=== PATIENT | male | born 1955 | race Caucasian/White ===

== ENCOUNTER 2019-05-08 08:09 | Day surgery (SDC) | payer MEDICAID ==
[2019-05-08] MEDS ORDERED: Sodium Chloride 0.9% 1,000 ML IV SCH (08:52)
[2019-05-08] MEDS ORDERED: Propofol 200 MG/20 ML SDV ONE ×2 (09:39→09:53)
[2019-05-08] MEDS ORDERED: Midazolam 1 MG/ML 2 ML SDV ONE (09:39)
[2019-05-08] MEDS ORDERED: fentaNYL 100 MCG/2 ML SDV ONE (09:39)
[2019-05-08 10:49] VITALS: PULSE 53
[2019-05-08 11:00] VITALS: BP 131/85
--- NOTE | 2019-05-08 11:43 | OR ---
DATE OF PROCEDURE: 05/08/2019 SURGEON: Tyrell Pacheco MD PROCEDURE: Colonoscopy. FINDINGS: 1. Ascending colon polyp, approximately 5 mm, completely removed using hot snare wire. 2. Ascending colon polyp, approximately 5 mm, completely removed using cold biopsy forceps. COMPLICATIONS: None. RAILROAD REPAIRER: None. ANESTHESIA: MAC. RISKS: Risks, benefits, alternatives, and limitations including, but not limited to infection, bleeding, and perforation were explained to the patient, who wished to proceed. PROCEDURE IN DETAIL: The patient was placed in a left lateral decubitus position. Digital rectal exam was performed without abnormality. Scope was introduced and advanced atraumatically to the ileocecal valve. Scope was brought back through the ascending, transverse, descending colon, and retroflexed. The aforementioned polyps were both identified and completely removed. No abnormalities on retroflexion. The patient tolerated the procedure well. Tyrell Pacheco MD /[id number]
== END 2019-05-08 11:13 | disposition home or self-care (01) ==
LOC: JP.SDS 08:09
PROVIDERS: ATTEND Surgery
DX: Z12.11 Encounter for screening for malignant neoplasm of colon (principal); D12.2 Benign neoplasm of ascending colon; I10 Essential (primary) hypertension; I25.10 Atherosclerotic heart disease of native coronary artery without angina pectoris; E78.5 Hyperlipidemia, unspecified; G47.33 Obstructive sleep apnea (adult) (pediatric); Q60.0 Renal agenesis, unilateral; F17.200 Nicotine dependence, unspecified, uncomplicated; E66.9 Obesity, unspecified; Z68.32 Body mass index [BMI] 32.0-32.9, adult; Z86.010 Personal history of colon polyps; Z79.82 Long term (current) use of aspirin; Z79.899 Other long term (current) drug therapy
CPT/HCPCS: 88305; J2250; J2704; J3010; J7030

== ENCOUNTER 2020-10-06 16:12 | Emergency (ER) | payer MEDICAID ==
[2020-10-06] MEDS ORDERED: Sodium Chloride 0.9% 1,000 ML IV SCH (16:45)
[2020-10-06] MEDS ORDERED: Acetaminophen Soln 650 MG/20.3 ML UD Cup PO ONE (17:01)
[2020-10-06] MEDS ORDERED: Acetaminophen 325 MG Tab PO ONE (17:15)
[2020-10-06 17:35] VITALS: BP 101/74; PULSE 68
--- NOTE | 2020-10-06 18:28 | EDM.PDOC ---
ED HPI GENERAL MEDICAL PROBLEM - General Chief Complaint: Cardiovascular Problem Stated Complaint: LOW BP DIZZINESS Time Seen by Provider: 10/06/20 18:20 Source of Information: Reports: Patient History Limitations: Reports: No Limitations - History of Present Illness INITIAL COMMENTS - FREE TEXT/NARRATIVE: pt was seen at [facility] today and was found to have a low bp. He has not been vomiting. He has been having problems with his cpap. he feels like he has not been getting enouch o2. Onset: Today, Other ( bp was very low. ) Duration: Hour(s): Associated Symptoms: Reports: Weakness, Other (pt has had some dizziness. ) - Related Data Allergies Allergy/AdvReac Type Severity Reaction Status Date / Time No Known Allergies Allergy Verified 10/06/20 16:36 Home Meds: Home Meds Aspirin 325 mg PO DAILY 01/15/13 [History] Loratadine [Claritin] 10 mg PO DAILY 01/15/13 [History] Metoprolol Succinate [Toprol XL] 25 mg PO DAILY 01/15/13 [History] Sildenafil [Viagra] 100 mg PO ASDIRECTED PRN 01/15/13 [History] Tamsulosin [Tamsulosin 24 Hr] 0.4 mg PO DAILY 05/15/16 [History] atorvaSTATin [Lipitor] 20 mg PO BEDTIME 05/15/16 [History] Finasteride [Proscar] 5 mg PO DAILY 05/05/19 [History] lisinopriL [Lisinopril] 10 mg PO DAILY 05/05/19 [History] Past Medical History - Past Health History Medical/Surgical History: Denies Medical/Surgical History Cardiovascular History: Reports: Arrhythmia, Hypertension Respiratory History: Reports: Sleep Apnea Other Respiratory History: C-pap Gastrointestinal History: Reports: GERD, Other (See Below) Other Gastrointestinal History: colitis Musculoskeletal History: Reports: Back Pain, Chronic, Fracture Endocrine/Metabolic History: Reports: Obesity/BMI 30+ Dermatologic History: Reports: Other (See Below) Other Dermatologic History: rash on upper chest for 1 week - Infectious Disease History Infectious Disease History: Reports: Chicken Pox, Measles, Mumps - Past Surgical History HEENT Surgical History: Reports: Oral Surgery Other HEENT Surgeries/Procedures: widsdom teeth, broke nose GI Surgical History: Reports: Colonoscopy, Hernia, Abdominal, Hernia, Inguinal Male Surgical History: Reports: Nephrectomy Other Male Surgeries/Procedures: left nephrectomy Neurological Surgical History: Reports: Spinal Fusion Musculoskeletal Surgical History: Reports: Arthroscopic Knee Other Musculoskeletal Surgeries/Procedures:: right knee Social & Family History - Family History Family Medical History: No Pertinent Family History - Tobacco Use Years of Tobacco use: 24 Packs/Tins Daily: 0.5 - Caffeine Use Caffeine Use: Reports: None - Alcohol Use Days Per Week of Alcohol Use: 3 Number of Drinks Per Day: 3 Total Drinks Per Week: 9 - Recreational Drug Use Recreational Drug Use: No ED ROS GENERAL - Review of Systems Review Of Systems: See Below Constitutional: Reports: No Symptoms HEENT: Reports: No Symptoms Respiratory: Reports: No Symptoms Cardiovascular: Reports: Other (bp was very low at the clinic today. He has been drinking alot of fluids. He has not been vomiting. ) Endocrine: Reports: No Symptoms GI/Abdominal: Reports: No Symptoms, Other (pt has no abdomanal pain) : Reports: No Symptoms Musculoskeletal: Reports: No Symptoms Skin: Reports: No Symptoms ED EXAM, GENERAL - Physical Exam Exam: See Below Free Text/Narrative:: pt arrived with a history of feeling lite headed and he was found to have bp in the 70 range today. On arrival here his bp was 110. Exam Limited By: No Limitations General Appearance: Alert, Anxious Ears: Normal TMs Nose: Normal Inspection Throat/Mouth: Normal Inspection Head: Atraumatic Neck: Normal Inspection Respiratory/Chest: No Respiratory Distress, Other (pt states that his cpap is not working right. ) Cardiovascular: Regular Rate, Rhythm GI/Abdominal: Soft, Non-Tender (Male) Exam: Deferred Rectal (Males) Exam: Deferred Back Exam: Normal Inspection Extremities: Normal Inspection Neurological: Alert, Oriented, Normal Cognition Psychiatric: Anxious Course - Vital Signs Last Recorded V/S: Last Vital Signs Temp 36.8 C 10/06/20 16:33 Pulse 68 10/06/20 17:35 Resp 18 10/06/20 17:35 BP 101/74 10/06/20 17:35 Pulse Ox 98 10/06/20 17:35 - Orders/Labs/Meds Labs: Laboratory Tests 10/06/20 10/06/20 10/06/20 Range/Units 16:40 16:40 17:23 WBC 6.9 (4.5-11.0) K/uL RBC 4.19 L (4.30-5.90) M/uL Hgb 14.2 (12.0-15.0) g/dL Hct 42.2 (40.0-54.0) % MCV 101 H (80-98) fL MCH 34 H (27-31) pg MCHC 34 (32-36) % Plt Count 101 L (150-400) K/uL Neut % (Auto) 69.5 H (36-66) % Lymph % (Auto) 20.8 L (24-44) % [place] % (Auto) 8.7 H (2-6) % Eos % (Auto) 0.7 L (2-4) % Baso % (Auto) 0.3 (0-1) % Sodium 136 L (140-148) mmol/L Potassium 4.4 (3.6-5.2) mmol/L Chloride 99 L (100-108) mmol/L Carbon Dioxide 26 (21-32) mmol/L Anion Gap 15.4 H (5.0-14.0) mmol/L BUN 32 H (7-18) mg/dL Creatinine 1.8 H (0.8-1.3) mg/dL Est Cr Clr Drug Dosing 43.58 mL/min Estimated GFR (MDRD) 38 L (>60) Glucose 104 (74-106) mg/dL Calcium 8.8 (8.5-10.1) mg/dL Total Bilirubin 1.3 H (0.2-1.0) mg/dL AST 112 H (15-37) U/L ALT 113 H (12-78) U/L Alkaline Phosphatase 83 (46-116) U/L Total Protein 7.2 (6.4-8.2) g/dL Albumin 3.5 (3.4-5.0) g/dL Globulin 3.7 H (2.3-3.5) g/dL Albumin/Globulin Ratio 1.0 L (1.2-2.2) Lipase 379 (73-393) U/L Urine Color (YELLOW) Urine Appearance (CLEAR) Urine pH (5.0-8.0) Ur Specific [place] (1.008-1.030) Urine Protein (NEGATIVE) mg/dL Urine Glucose (UA) (NEGATIVE) mg/dL Urine Ketones (NEGATIVE) mg/dL Urine Occult Blood (NEGATIVE) Urine Nitrite (NEGATIVE) Urine Bilirubin (NEGATIVE) Urine Urobilinogen (0.2-1.0) EU/dL Ur Leukocyte Esterase (NEGATIVE) Urine RBC (0-5) Urine WBC (0-5) Ur Epithelial Cells Amorphous Sediment Urine Bacteria Urine Mucus Urine Other 10/06/20 Range/Units 17:57 WBC (4.5-11.0) K/uL RBC (4.30-5.90) M/uL Hgb (12.0-15.0) g/dL Hct (40.0-54.0) % MCV (80-98) fL MCH (27-31) pg MCHC (32-36) % Plt Count (150-400) K/uL Neut % (Auto) (36-66) % Lymph % (Auto) (24-44) % [place] % (Auto) (2-6) % Eos % (Auto) (2-4) % Baso % (Auto) (0-1) % Sodium (140-148) mmol/L Potassium (3.6-5.2) mmol/L Chloride (100-108) mmol/L Carbon Dioxide (21-32) mmol/L Anion Gap (5.0-14.0) mmol/L BUN (7-18) mg/dL Creatinine (0.8-1.3) mg/dL Est Cr Clr Drug Dosing mL/min Estimated GFR (MDRD) (>60) Glucose (74-106) mg/dL Calcium (8.5-10.1) mg/dL Total Bilirubin (0.2-1.0) mg/dL AST (15-37) U/L ALT (12-78) U/L Alkaline Phosphatase (46-116) U/L Total Protein (6.4-8.2) g/dL Albumin (3.4-5.0) g/dL Globulin (2.3-3.5) g/dL Albumin/Globulin Ratio (1.2-2.2) Lipase (73-393) U/L Urine Color Yellow (YELLOW) Urine Appearance Clear (CLEAR) Urine pH 5.0 (5.0-8.0) Ur Specific [place] 1.020 (1.008-1.030) Urine Protein Negative (NEGATIVE) mg/dL Urine Glucose (UA) Negative (NEGATIVE) mg/dL Urine Ketones Trace H (NEGATIVE) mg/dL Urine Occult Blood Trace-intact H (NEGATIVE) Urine Nitrite Negative (NEGATIVE) Urine Bilirubin Small H (NEGATIVE) Urine Urobilinogen 1.0 (0.2-1.0) EU/dL Ur Leukocyte Esterase Negative (NEGATIVE) Urine RBC 0-5 (0-5) Urine WBC 0-5 (0-5) Ur Epithelial Cells Moderate Amorphous Sediment Occasional Urine Bacteria Few Urine Mucus Occasional Urine Other See note Meds: Medications Discontinued Medications Generic Name Dose Route Start Last Admin Trade Name Zachery PRN Reason Stop Dose Admin Acetaminophen 650 mg 10/06/20 17:15 10/06/20 17:27 Acetaminophen 325 Mg Tab PO 10/06/20 17:16 650 mg ONETIME ONE Administration Sodium Chloride 1,000 mls @ 999 mls/hr 10/06/20 16:45 10/06/20 17:28 Normal Saline IV 999 mls/hr ASDIRECTED [facility] Administration - Re-Assessments/Exams Free Text/Narrative Re-Assessment/Exam: 10/06/20 18:33 bp has been stable since arrival. He was given a liter fluid. his bp has been stable. He will be checking on the cpap machine tomorrow. Departure - Departure Time of Disposition: 18:35 Disposition: Home, Self-Care 01 Condition: Fair Clinical Impression: Hypotension, Dehydration Instructions: Hypotension, [id number], Dehydration, Adult, [id number] Referrals: Loreto Hurtado MD [Primary Care Provider] - Forms: ED Department Discharge Care Plan Goals: try to get the cpap machine readjusted. --tomorrow, decrease the lisinopril to 7.5 mg daily, appt at [facility] sunday to recheck bp. look at cholestrol meds that may be elevated liver enzymes. Sepsis Event Note (ED) - Evaluation Sepsis Screening Result: No Definite Risk
== END 2020-10-06 18:54 | disposition home or self-care (01) ==
LOC: JP.ED 16:12
DX: E86.0 Dehydration (principal); I95.9 Hypotension, unspecified; I10 Essential (primary) hypertension; E66.9 Obesity, unspecified; Z68.32 Body mass index [BMI] 32.0-32.9, adult; Z72.0 Tobacco use; Z79.82 Long term (current) use of aspirin; Z79.899 Other long term (current) drug therapy
CPT/HCPCS: 36415; 80053; 81001; 83690; 85025; 99283; 99285; A9270; J7030

== ENCOUNTER 2021-05-02 05:49 | Day surgery (SDC) | payer MEDICARE, MEDICAID ==
[2021-05-02] MEDS ORDERED: Dextrose 5%-Lactated Ringers 1,000 ML IV SCH ×2 (06:00→06:39)
[2021-05-02] MEDS ORDERED: Midazolam 1 MG/ML 2 ML SDV ONE (07:17)
[2021-05-02] MEDS ORDERED: fentaNYL 100 MCG/2 ML SDV ONE (07:17)
[2021-05-02] MEDS ORDERED: Propofol 200 MG/20 ML SDV ONE (07:17)
[2021-05-02] MEDS ORDERED: Pantoprazole 40 MG Vial IVPUSH ONE (07:45)
[2021-05-02 08:30] VITALS: BP 134/88; PULSE 63
--- NOTE | 2021-05-04 09:51 | OR ---
DATE OF PROCEDURE: 05/02/2021 SURGEON: Momo Reyes MD PREOPERATIVE DIAGNOSIS: Recent nausea and vomiting (now resolved) with 20-year history of chewing tobacco use. POSTOPERATIVE DIAGNOSES: 1. Recent nausea and vomiting (now resolved) with 20-year history of chewing tobacco use. 2. 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 3. Diffuse gastritis. OPERATIVE PROCEDURES: Esophagogastroduodenoscopy with: 1. Biopsies of esophagogastric junction for histologic evaluation. 2. Biopsies of antrum for CLOtest. ANESTHESIA: IV sedation. INDICATION FOR PROCEDURE: This is a 65-year-old male, who recently had a period of nausea and vomiting. This has now resolved. He does have a history of 20 years of chewing tobacco and has a screening for problems such as esophageal cancer. The patient is undergoing upper GI endoscopy with biopsies as indicated. Potential risks including bleeding and perforation were discussed, and the patient wishes to proceed. DETAILS OF PROCEDURE: The patient taken to the operating room, placed in a left lateral decubitus position. IV sedation was administered, after which the upper GI endoscope was passed orally through the length of the esophagus and the stomach with retroflexion in the fundus and thereafter through the pyloric channel and into the junction of third and fourth portions of the duodenum. Findings included a fairly good visualization of the hypopharynx and larynx. No abnormalities were noted at that level. The upper esophageal sphincter, esophageal body were unremarkable. In the distal esophagus, there was roughly a 2 cm hiatal hernia. This was involving a fairly intense esophagitis with there being one linear ulcer and some upward extension of the columnar mucosa above the upper gastric folds. There is nothing involving length of esophagus. However, there was nothing that was suggestive that he has any neoplastic changes. Within the stomach, there is a more or less a diffuse gastritis. His pain was intense within the antrum, but the entire stomach was somewhat reddened and edematous at the mucosal level. No ulcers or erosions were seen. I did not think suggests neoplasia. The pyloric channel and visualized portion of the duodenum were unremarkable. At this point, biopsies obtained from the antrum, sent for CLOtest for H pylori. Multiple biopsies were then obtained from esophagogastric junction, sent for histologic evaluation. Minimal bleeding from the biopsy sites was seen and the procedure then concluded. The patient was taken to the recovery room in satisfactory condition. PLAN: Will be to give the patient some Protonix 40 mg IV in the recovery room and then continue Protonix 40 mg daily. He will be set up to see Dr. Hammer in [facility] in roughly 2 weeks. Momo Reyes MD /[id number]
== END 2021-05-02 08:35 | disposition home or self-care (01) ==
LOC: JP.SDS 05:49
PROVIDERS: ATTEND Surgery
DX: K29.70 Gastritis, unspecified, without bleeding (principal); K44.9 Diaphragmatic hernia without obstruction or gangrene; K20.90 Esophagitis, unspecified without bleeding; F17.220 Nicotine dependence, chewing tobacco, uncomplicated; G47.33 Obstructive sleep apnea (adult) (pediatric); I10 Essential (primary) hypertension; I25.10 Atherosclerotic heart disease of native coronary artery without angina pectoris; E66.9 Obesity, unspecified; Z68.31 Body mass index [BMI] 31.0-31.9, adult
CPT/HCPCS: 43239; 87081; C9113; J2250; J2704; J3010; J7121; 88305

== ENCOUNTER → 2023-06-12 | Day surgery (SDC) | payer MEDICARE, MEDICAID ==
[~2023-06-12] MED LIST: Midazolam 1 MG/ML 2 ML SDV ONE; Propofol 200 MG/20 ML SDV ONE; fentaNYL 50 MCG/ML SDV ONE
[2023-06-12] MEDS: Lactated Ringers 1,000 ML IV SCH (08:16)
[2023-06-12 09:44] VITALS: BP 133/90; PULSE 50
== END ==
LOC: JP.SDS 07:33
PROVIDERS: ATTEND Family Medicine
DX: Z12.11 Encounter for screening for malignant neoplasm of colon (principal); D12.2 Benign neoplasm of ascending colon; D12.0 Benign neoplasm of cecum; D12.3 Benign neoplasm of transverse colon; I10 Essential (primary) hypertension; E78.5 Hyperlipidemia, unspecified; I25.10 Atherosclerotic heart disease of native coronary artery without angina pectoris; G47.33 Obstructive sleep apnea (adult) (pediatric)
CPT/HCPCS: 45380; J2250; J2704; J3010; J7120; 88305

== ENCOUNTER 2024-06-26 02:06 | Emergency (ER) | payer MEDICAID, MEDICARE ==
[2024-06-26 03:05] LABS: BASOPHILS ABSOLUTE AUTO 0.04 K/uL (0.00-0.10); BASOPHILS PERCENT AUTO 0.6 % (0.1-1.3); EOSINOPHILS ABSOLUTE AUTO 0.04 K/uL (0.00-0.40); EOSINOPHILS PERCENT AUTO 0.6 % (0.0-5.4); HEMATOCRIT 48.2 % (38.4-49.7); HEMOGLOBIN 17.3 g/dL (12.9-16.9); IMMATURE GRAN ABSOLUTE AUTO 0.01 K/uL (0.00-0.23); IMMATURE GRAN PERCENT AUTO 0.1 % (0.0-0.7); LYMPHOCYTES ABSOLUTE AUTO 0.98 K/uL (0.8-3.3); LYMPHOCYTES PERCENT AUTO 14.6 % (11.4-47.7); MEAN CORPUSCULAR HEMOGLOBIN 34.9 pg (31.6-35.5); MEAN CORPUSCULAR HGB CONC 35.9 g/dL (31.6-35.5); MEAN CORPUSCULAR VOLUME 97.4 fL (81.4-99.0); MONOCYTES PERCENT AUTO 4.5 % (3.3-12.6); NEUTROPHILS ABSOLUTE AUTO 5.35 K/uL (1.0-7.6); NEUTROPHILS PERCENT AUTO 79.6 % (40.0-78.1); PLATELET COUNT,PLT 117 K/uL (130-375); RED BLOOD CELL COUNT 4.95 M/uL (4.14-5.76); WHITE BLOOD CELL COUNT,WBC 6.7 K/uL (3.2-11.0)
[2024-06-26] MEDS: Sodium Chloride 0.9% 1,000 ML IV SCH (03:17)
[2024-06-26] MEDS: Ondansetron 4 MG/2 ML SDV IVPUSH ONE (03:17)
[2024-06-26 03:29] LABS: A/G RATIO 1.3 (1.2-2.2); ALANINE AMINOTRANSFERASE,ALT 48 U/L (12-78); ALBUMIN 4.3 g/dL (3.4-5.0); ALKALINE PHOSPHATASE 97 U/L (46-116); ASPARTATE AMNIOTRANSFERASE,AST 48 U/L (15-37); BILIRUBIN TOTAL 1.4 mg/dL (0.2-1.0); BLOOD UREA NITROGEN,BUN 12 mg/dL (7-18); CALCIUM 8.6 mg/dL (8.5-10.1); CARBON DIOXIDE,CO2 22 mmol/L (21-32); CHLORIDE,CL 99 mmol/L (100-108); CREATININE 0.8 mg/dL (0.8-1.3); ESTIMATED GFR 96 mL/min (>60); GLUCOSE RANDOM 126 mg/dL (74-106); PROTEIN TOTAL,TP 7.7 g/dL (6.4-8.2); SODIUM,NA 136 mmol/L (140-148); TROPONIN I HIGH SENSITIVITY 15.4 pg/mL (<=60.3)
[2024-06-26 04:01] VITALS: BP 168/109; PULSE 95
[2024-06-26] MEDS: Aspirin 325 MG Tab.EC PO ONE (04:09)
[2024-06-26] MEDS: LORazepam 2 MG/ML SDV IVPUSH ONE (05:01)
== END 2024-06-26 05:35 | disposition home or self-care (01) ==
LOC: JP.ED 02:06
DX: I48.91 Unspecified atrial fibrillation (principal); I10 Essential (primary) hypertension; R11.2 Nausea with vomiting, unspecified; I25.10 Atherosclerotic heart disease of native coronary artery without angina pectoris; E78.00 Pure hypercholesterolemia, unspecified; E66.9 Obesity, unspecified; Z79.899 Other long term (current) drug therapy
CPT/HCPCS: 36415; 80053; 80307; 83690; 84484; 85025; 93005; 96361; 96374; 96375; 99285; A9270; J2060; J2405; J7030

== ENCOUNTER 2024-09-07 13:44 | Emergency (ER) | payer MEDICARE ==
[2024-09-07 14:23] LABS: BASOPHILS ABSOLUTE AUTO 0.03 K/uL (0.00-0.10); BASOPHILS PERCENT AUTO 0.6 % (0.1-1.3); HEMATOCRIT 40.2 % (38.4-49.7); HEMOGLOBIN 14.3 g/dL (12.9-16.9); IMMATURE GRAN PERCENT AUTO 0.2 % (0.0-0.7); LYMPHOCYTES ABSOLUTE AUTO 1.13 K/uL (0.8-3.3); MEAN CORPUSCULAR HEMOGLOBIN 36.4 pg (31.6-35.5); MEAN CORPUSCULAR HGB CONC 35.6 g/dL (31.6-35.5); MEAN CORPUSCULAR VOLUME 102.3 fL (81.4-99.0); MONOCYTES PERCENT AUTO 5.8 % (3.3-12.6); NEUTROPHILS ABSOLUTE AUTO 3.67 K/uL (1.0-7.6); NEUTROPHILS PERCENT AUTO 71.4 % (40.0-78.1); PLATELET COUNT,PLT 120 K/uL (130-375); RED BLOOD CELL COUNT 3.93 M/uL (4.14-5.76); WHITE BLOOD CELL COUNT,WBC 5.1 K/uL (3.2-11.0)
[2024-09-07 14:30] LABS: IMMATURE GRAN ABSOLUTE AUTO 0.01 K/uL (0.00-0.23)
[2024-09-07 14:43] LABS: A/G RATIO 1.1 (1.2-2.2); ALANINE AMINOTRANSFERASE,ALT 160 U/L (12-78); ALBUMIN 3.5 g/dL (3.4-5.0); ALKALINE PHOSPHATASE 95 U/L (46-116); ASPARTATE AMNIOTRANSFERASE,AST 137 U/L (15-37); BILIRUBIN TOTAL 0.7 mg/dL (0.2-1.0); BLOOD UREA NITROGEN,BUN 10 mg/dL (7-18); CALCIUM 8.7 mg/dL (8.5-10.1); CARBON DIOXIDE,CO2 19 mmol/L (21-32); CHLORIDE,CL 101 mmol/L (100-108); CREATININE 0.8 mg/dL (0.8-1.3); EST CRCL DRUG DOSING (CG) 87.15 mL/min; ESTIMATED GFR 96 mL/min (>60); GLUCOSE RANDOM 76 mg/dL (74-106); PROTEIN TOTAL,TP 6.7 g/dL (6.4-8.2); SODIUM,NA 139 mmol/L (140-148)
[2024-09-07 14:52] LABS: PROTHROMBIN TIME 76.6 sec (9.2-10.6)
[2024-09-07 14:53] LABS: INR 8.2
[2024-09-07 15:08] VITALS: PULSE 78
[2024-09-07 15:59] VITALS: BP 171/119
== END 2024-09-07 16:04 | disposition home or self-care (01) ==
LOC: JP.ED 13:44
DX: R07.89 Other chest pain (principal); I48.91 Unspecified atrial fibrillation; I25.10 Atherosclerotic heart disease of native coronary artery without angina pectoris; I10 Essential (primary) hypertension; E78.00 Pure hypercholesterolemia, unspecified; E66.9 Obesity, unspecified; K21.9 Gastro-esophageal reflux disease without esophagitis; Z79.01 Long term (current) use of anticoagulants; Z79.899 Other long term (current) drug therapy; Z68.28 Body mass index [BMI] 28.0-28.9, adult
CPT/HCPCS: 36415; 71046; 71046-26; 80053; 84484; 85025; 85610; 93005; 93010; 99283; 99285

== ENCOUNTER 2025-01-10 22:49 | Emergency (ER) | payer MEDICARE ==
[2025-01-10 23:30] LABS: BASOPHILS PERCENT AUTO 0.2 % (0.1-1.3); EOSINOPHILS PERCENT AUTO 0.2 % (0.0-5.4); IMMATURE GRAN ABSOLUTE AUTO 0.04 K/uL (0.00-0.23); IMMATURE GRAN PERCENT AUTO 0.7 % (0.0-0.7); LYMPHOCYTES ABSOLUTE AUTO 0.91 K/uL (0.8-3.3); LYMPHOCYTES PERCENT AUTO 16.1 % (11.4-47.7); MONOCYTES ABSOLUTE AUTO 0.32 K/uL (0.20-0.90); MONOCYTES PERCENT AUTO 5.7 % (3.3-12.6); NEUTROPHILS ABSOLUTE AUTO 4.35 K/uL (1.0-7.6); NEUTROPHILS PERCENT AUTO 77.1 % (40.0-78.1); PLATELET COUNT,PLT 42 K/uL (130-375); RED BLOOD CELL COUNT 2.89 M/uL (4.14-5.76); WHITE BLOOD CELL COUNT,WBC 5.6 K/uL (3.2-11.0)
[2025-01-10 23:35] LABS: BASOPHILS ABSOLUTE AUTO 0.01 K/uL (0.00-0.10); EOSINOPHILS ABSOLUTE AUTO 0.01 K/uL (0.00-0.40)
[2025-01-10 23:56] LABS: A/G RATIO 1.1 (1.2-2.2); ALANINE AMINOTRANSFERASE,ALT 54 U/L (12-78); ASPARTATE AMNIOTRANSFERASE,AST 71 U/L (15-37); BILIRUBIN TOTAL 2.1 mg/dL (0.2-1.0); BLOOD UREA NITROGEN,BUN 17 mg/dL (7-18); CARBON DIOXIDE,CO2 31 mmol/L (21-32); CHLORIDE,CL 95 mmol/L (100-108); CREATININE 1.0 mg/dL (0.8-1.3); EST CRCL DRUG DOSING (CG) 70.97 mL/min; ESTIMATED GFR 81 mL/min (>60); GLUCOSE RANDOM 100 mg/dL (74-106); POTASSIUM,K 3.0 mmol/L (3.6-5.2); PROTEIN TOTAL,TP 6.5 g/dL (6.4-8.2); SODIUM,NA 133 mmol/L (140-148)
[2025-01-11 00:15] LABS: LACTIC ACID 1.5 mmol/L (0.4-2.0)
[2025-01-11] MEDS: LORazepam 2 MG/ML SDV IVPUSH ONE (00:38)
[2025-01-11] MEDS: Potassium Chloride 20 MEQ Tab.ER PO ONE (00:43)
[2025-01-11 01:20] LABS: INR 1.1
[2025-01-11 09:12] VITALS: BP 156/103; PULSE 100
== END 2025-01-11 10:55 | disposition other institution (70) ==
LOC: JP.ED 22:49
DX: F10.231 Alcohol dependence with withdrawal delirium (principal); I48.91 Unspecified atrial fibrillation; I25.10 Atherosclerotic heart disease of native coronary artery without angina pectoris; E78.00 Pure hypercholesterolemia, unspecified; I10 Essential (primary) hypertension; I25.2 Old myocardial infarction; Z79.899 Other long term (current) drug therapy; Z79.01 Long term (current) use of anticoagulants; K21.9 Gastro-esophageal reflux disease without esophagitis; Y90.9 Presence of alcohol in blood, level not specified
CPT/HCPCS: 36415; 80053; 80307; 83605; 85025; 85610; 86140; 96361; 96374; 99285; A9270; J2060; J7030